=== PATIENT | female | born 1945 | race Caucasian/White ===

== ENCOUNTER 2018-07-03 18:52 | Emergency (ER) | payer MEDICARE | END 2018-07-03 20:36 | disposition home or self-care (01) | LOC: ERS 18:52 | DX: R20.2 Paresthesia of skin (principal); E03.9 Hypothyroidism, unspecified; F32.9 Major depressive disorder, single episode, unspecified; Z87.891 Personal history of nicotine dependence; Z79.899 Other long term (current) drug therapy | CPT/HCPCS: 99284 ==

== ENCOUNTER 2020-01-10 12:24 | Outpatient (CLI) | payer MEDICARE ==
--- NOTE | 2020-01-10 13:20 | ULT ---
Ultrasound thyroid: DATE: 01/10/2020 HISTORY: E07.9, thyroid mass in 74-year-old female COMPARISON: None FINDINGS: Isthmus: 0.5 cm AP. Right lobe: 4.0 x 1.5 x 1.1 cm. Left lobe: 3.1 x 1.4 x 1.0 cm. Thyroid parenchymal echogenicity is diffusely heterogeneous. In the right upper-mid pole, there is a solid nodule measuring 0.8 x 0.5 x 0.7 cm. Composition: Solid: 2 points Echogenicity: Hyperechoic: 1 point Shape: Wider than tall: 0 point Margin: Smooth: 0 point Echogenic foci: None: 0 point Total points: 3: TIRADS category 3: Mildly suspicious. Recommendation for TIRADS category 3: Fine-needle aspiration if greater than or equal to 2.5 cm. Follow-up if greater than or equal to 1.5 cm. This patient's lesion is less than 1.5 cm. No follow-up necessary. IMPRESSION: 1.) Solitary TIRADS category 3 right thyroid nodule. No follow-up recommended. 2) diffusely heterogeneous echogenicity and heterogeneous echotexture of the thyroid gland. 3) small size of thyroid gland.
== END 2020-01-10 12:25 | disposition home or self-care (01) ==
LOC: BICULT 12:24
PROVIDERS: ATTEND Internal Medicine Cardiovascular Disease
DX: E07.9 Disorder of thyroid, unspecified (principal); E04.1 Nontoxic single thyroid nodule
CPT/HCPCS: 76536